=== PATIENT | female | born 1935 | race Caucasian/White ===

== ENCOUNTER 2017-03-17 11:45 | Inpatient (IN) | payer MEDICARE ==
[2017-03-15 12:28] LABS: BLOOD UREA NITROGEN 30 mg/dL (7-18)
[2017-03-15 12:32] LABS: ASPARTATE AMINO TRANSFERASE 24 U/L (15-37)
[2017-03-15 12:38] LABS: PATH.CAST-FLAG NOT PRESENT; SPERM-FLAG NOT PRESENT; SRC-FLAG NOT PRESENT; XTAL-FLAG NOT PRESENT; YLC-FLAG NOT PRESENT
[~2017-03-17] VITALS: Ht 157.5 cm; Wt 68.0 kg
[~2017-03-17 11:45] MED LIST: GLUC1TAB27 PO; IRON PO; KRIL500C PO; MULT-249 PO; SULF1TAB24 PO; VIT1CAPS42 PO
[2017-03-17] MEDS ORDERED: LACTATED RINGERS 1,000 ML IV SCH (12:31)
[2017-03-17 12:50] VITALS: BP 114/60
[2017-03-17] MEDS ORDERED: MIDAZOLAM 1 MG/ML, 2ML ONE (14:55)
[2017-03-17] MEDS ORDERED: FENTANYL PF 250 MCG/5ML ONE (14:55)
[2017-03-17] MEDS ORDERED: SUCCINYLCHOLINE 20 MG/ML, 10ML ONE (14:58)
[2017-03-17] MEDS ORDERED: PROPOFOL 10 MG/ML, 20ML ONE (14:58)
[2017-03-17] MEDS ORDERED: GLYCOPYRROLATE 0.2MG/1ML ONE (14:58)
[2017-03-17] MEDS ORDERED: ROCURONIUM 10 MG/ML ONE (14:58)
[2017-03-17] MEDS ORDERED: CEFAZOLIN 1,000 MG ONE (14:58)
[2017-03-17] MEDS ORDERED: NEOSTIGMINE 1 MG/ML, 10ML ONE (14:58)
[2017-03-17] MEDS ORDERED: OMNIPAQUE 350 MG/ML, 50 ML BOTTLE IV ONE (15:15)
[2017-03-17] MEDS ORDERED: OPIUM/BELLADONNA SUPP.RECT 16.2-60 MG ONE (15:41)
[2017-03-17] MEDS ORDERED: ONDANSETRON 2MG/ML, 2ML IVPush PRN (16:00)
[2017-03-17] MEDS ORDERED: LABETALOL 5MG/ML, 20ML IV PRN (16:00)
[2017-03-17] MEDS ORDERED: METOCLOPRAMIDE 5 MG/ML, 2ML IV PRN (16:00)
[2017-03-17] MEDS ORDERED: hydrALAzine 20 MG/ML, 1ML IV PRN (16:00)
[2017-03-17] MEDS ORDERED: OXYcodone 5 MG/5 ML ORAL.SOL UDC PO PRN (16:00)
[2017-03-17] MEDS ORDERED: ACETAMINOPHEN 325 MG TABLET PO PRN (16:00)
[2017-03-17] MEDS: FENTANYL PF 100 MCG/2ML IV PRN ×2 (16:10→16:32)
[2017-03-17] MEDS ORDERED: ACETAMINOPHEN 650 MG/20.3 ML UDC ONE (16:12)
[2017-03-17] MEDS ORDERED: HYDROmorphone 2 MG/ML, 1ML ONE (16:12)
[2017-03-17] MEDS ORDERED: ACETAMINOPHEN 325 MG TABLET ONE (16:12)
[2017-03-17] MEDS ORDERED: FENTANYL PF 100 MCG/2ML ONE (16:12)
[2017-03-17] MEDS ORDERED: OXYcodone 5 MG/5 ML ORAL.SOL UDC ONE (16:12)
[2017-03-17] MEDS: HYDROmorphone 1 MG/ML, 1ML IV PRN ×2 (16:19→16:29)
[2017-03-17] MEDS ORDERED: ONDANSETRON 2MG/ML, 2ML ONE (17:11)
[2017-03-17] MEDS ORDERED: morphine SULFATE 10 MG/ML, 1ML IV PRN (18:30)
[2017-03-17] MEDS ORDERED: HYDROcodone/APAP 5/325 TABLET PO PRN (18:30)
[2017-03-17] MEDS ORDERED: ONDANSETRON 2MG/ML, 2ML IV PRN (18:30)
[2017-03-17] MEDS: D5%-0.45NACL+KCL 20MEQ 1,000 ML IV SCH (18:45)
[2017-03-17 20:03] VITALS: BP 106/46
[2017-03-17] MEDS ORDERED: PROMETHAZINE 25 MG/ML, 1ML IM PRN (21:00)
[2017-03-17] MEDS: SULFAMETH./TRIMETHOPRIM DS 800MG/160MG TABLET PO SCH (23:02)
[2017-03-17] MEDS: CEFAZOLIN PMX 1GM/50ML 50 ML IV SCH (23:13)
[2017-03-18 00:44] VITALS: BP 93/43
[2017-03-18 05:04] VITALS: BP 93/46
[2017-03-18] MEDS: D5%-0.45NACL+KCL 20MEQ 1,000 ML IV SCH (05:47)
[2017-03-18 07:05] VITALS: BP 101/47
[2017-03-18] MEDS: SULFAMETH./TRIMETHOPRIM DS 800MG/160MG TABLET PO SCH (08:25)
[2017-03-18] MEDS: CEFAZOLIN PMX 1GM/50ML 50 ML IV SCH (08:25)
[2017-03-18 12:50] VITALS: BP 133/54
[2017-03-18] MEDS ORDERED: PHEN-418 PO (14:22)
[2017-03-18] MEDS ORDERED: NITR100C56 PO (14:23)
[2017-03-18] MEDS ORDERED: HYDR-3240 PO (14:24)
== END 2017-03-18 14:05 | disposition home or self-care (01) | DRG 657 ==
LOC: OUT 11:45 → 4NOR 17:52 → OUT 20:49 → 4NOR 20:49 → DCLOUNGE 03-18 13:25
PROVIDERS: ADMIT Urology; ATTEND Urology
PROC: BT1D1ZZ Fluoroscopy of Right Kidney, Ureter and Bladder using Low Osmolar Contrast (ICD-10-PCS; 2017-03-17)
PROC: 0T738DZ Dilation of Right Kidney Pelvis with Intraluminal Device, Via Natural or Artificial Opening Endoscopic (ICD-10-PCS; 2017-03-17)
PROC: 0T768DZ Dilation of Right Ureter with Intraluminal Device, Via Natural or Artificial Opening Endoscopic (ICD-10-PCS; principal; 2017-03-17 14:00)
PROC: 0TBB8ZZ Excision of Bladder, Via Natural or Artificial Opening Endoscopic (ICD-10-PCS; 2017-03-17 14:00)
DX: C67.9 Malignant neoplasm of bladder, unspecified (principal); N13.30 Unspecified hydronephrosis; N13.8 Other obstructive and reflux uropathy
CPT/HCPCS: 36415; 74420; 80053; 81001; 87086; 88305; 93005; J0690; J1170; J2250; J2405; J2550; J2704; J2710; J3010; J3490; Q9967; C1769; C2617; J0330; J3480; J7120

== ENCOUNTER → 2017-03-25 | Outpatient (CLI) | payer MEDICARE ==
[~2017-03-25] MED LIST changes: +HYDR-3240 PO; +NITR100C56 PO; +PHEN-418 PO
== END | disposition home or self-care (01) ==
LOC: PETCFH 11:15
PROVIDERS: ATTEND Urology
DX: C67.2 Malignant neoplasm of lateral wall of bladder (principal)
CPT/HCPCS: 78306; A9503

== ENCOUNTER → 2017-08-17 | Outpatient (CLI) | payer MEDICARE ==
[~2017-08-17] MED LIST changes: +VITAMIN B17 PO
[2017-08-17 11:53] LABS: PATH.CAST-FLAG NOT PRESENT; SPERM-FLAG NOT PRESENT; SRC-FLAG NOT PRESENT; XTAL-FLAG NOT PRESENT; YLC-FLAG NOT PRESENT
[2017-08-17 12:02] LABS: ASPARTATE AMINO TRANSFERASE 13 U/L (15-37); BLOOD UREA NITROGEN 29 mg/dL (7-18)
== END | disposition home or self-care (01) ==
LOC: STAR 10:47
PROVIDERS: ATTEND Urology
DX: Z01.818 Encounter for other preprocedural examination (principal); R94.31 Abnormal electrocardiogram [ECG] [EKG]; R82.99 Other abnormal findings in urine
CPT/HCPCS: 36415; 80053; 81001; 87086; 93005

== ENCOUNTER 2017-08-26 10:04 | Observation (INO) | payer MEDICARE ==
[~2017-08-26] VITALS: Ht 157.5 cm; Wt 67.0 kg
[2017-08-26 10:24] VITALS: BP 123/65
[2017-08-26] MEDS ORDERED: LACTATED RINGERS 1,000 ML IV SCH (10:28)
[2017-08-26] MEDS ORDERED: FENTANYL PF 100 MCG/2ML ONE ×4 (11:38→15:13)
[2017-08-26] MEDS ORDERED: PROPOFOL 50 ML ONE (11:43)
[2017-08-26] MEDS ORDERED: ONDANSETRON 2MG/ML, 2ML ONE ×2 (12:10→15:29)
[2017-08-26] MEDS ORDERED: CEFAZOLIN 1,000 MG ONE (12:10)
[2017-08-26] MEDS ORDERED: PROPOFOL 10 MG/ML, 20ML ONE (12:10)
[2017-08-26] MEDS ORDERED: GLYCOPYRROLATE 0.2MG/1ML, 5ML ONE (12:10)
[2017-08-26] MEDS ORDERED: ROCURONIUM 10 MG/ML ONE (12:10)
[2017-08-26] MEDS ORDERED: DEXAMETHASONE 4 MG/ML, 1ML ONE (12:10)
[2017-08-26] MEDS ORDERED: NEOSTIGMINE 1 MG/ML, 10ML ONE (12:10)
[2017-08-26] MEDS ORDERED: SUCCINYLCHOLINE 20 MG/ML, 10ML ONE (12:10)
[2017-08-26] MEDS ORDERED: OXYcodone 5 MG/5 ML ORAL.SOL UDC ONE (12:59)
[2017-08-26] MEDS ORDERED: ACETAMINOPHEN 650 MG/20.3 ML UDC ONE (12:59)
[2017-08-26] MEDS: FENTANYL PF 100 MCG/2ML IV PRN ×3 (13:00→13:36)
[2017-08-26] MEDS ORDERED: OXYcodone 5 MG/5 ML ORAL.SOL UDC PO PRN (13:30)
[2017-08-26] MEDS ORDERED: ACETAMINOPHEN 325 MG TABLET PO PRN (13:30)
[2017-08-26] MEDS ORDERED: HYDROmorphone 1 MG/ML, 1ML IV PRN (13:30)
[2017-08-26] MEDS ORDERED: LIDOCAINE 1%, 20ML ONE (14:51)
[2017-08-26] MEDS ORDERED: HYDROcodone/APAP 5/325 TABLET PO PRN ×2 (15:00)
[2017-08-26] MEDS ORDERED: morphine SULFATE 10 MG/ML, 1ML IV PRN (15:00)
[2017-08-26] MEDS ORDERED: OPIUM/BELLADONNA SUPP.RECT 16.2-30 MG PR PRN (15:00)
[2017-08-26] MEDS ORDERED: ONDANSETRON 2MG/ML, 2ML IV PRN (15:00)
[2017-08-26] MEDS ORDERED: NALOXONE 1 MG/ML, 2ML ONE (15:13)
[2017-08-26] MEDS ORDERED: FLUMAZENIL 0.1 MG/1 ML, 5ML ONE (15:13)
[2017-08-26] MEDS ORDERED: MIDAZOLAM 1 MG/ML, 5ML ONE (15:13)
[2017-08-26] MEDS: D5%-0.45NACL+KCL 20MEQ 1,000 ML IV SCH (17:18)
[2017-08-26 19:35] VITALS: BP 115/60
[2017-08-26] MEDS: CEFAZOLIN PMX 1GM/50ML 50 ML IV SCH (20:33)
[2017-08-27 01:43] VITALS: BP 105/64
[2017-08-27] MEDS: CEFAZOLIN PMX 1GM/50ML 50 ML IV SCH (04:23)
[2017-08-27 05:18] LABS: HEMATOCRIT 26.9 % (34.6-47.8); HEMOGLOBIN 9.2 g/dL (11.7-16.4)
[2017-08-27 05:27] LABS: BLOOD UREA NITROGEN 25 mg/dL (7-18)
[2017-08-27] MEDS: D5%-0.45NACL+KCL 20MEQ 1,000 ML IV SCH (06:23)
[2017-08-27 06:40] VITALS: BP 92/51
[2017-08-27] MEDS ORDERED: HYDR-3237 PO (09:57)
[2017-08-27] MEDS ORDERED: PHEN-418 PO (09:57)
[2017-08-27 10:55] VITALS: BP 97/57
[2017-08-27 18:25] VITALS: BP 95/55
== END 2017-08-27 11:05 | disposition home or self-care (01) ==
LOC: OUT 10:04 → 4NOR 14:21 → OUT 22:34
PROVIDERS: ADMIT Urology; ATTEND Urology
DX: C67.9 Malignant neoplasm of bladder, unspecified (principal); N13.1 Hydronephrosis with ureteral stricture, not elsewhere classified; K21.9 Gastro-esophageal reflux disease without esophagitis
CPT/HCPCS: 36415; 50693; 52240; 80048; 85014; 85018; 88307; 96365; 96375; 99156; 99157; C1769; C1894; C2625; G0378; J0330; J0690; J1100; J2250; J2405; J2704; J2710; J3010; J3480; J3490; J7120; J2310

== ENCOUNTER → 2017-12-20 | Outpatient (CLI) | payer MEDICARE ==
[~2017-12-20] MED LIST changes: +CALC-534 PO; +CETI10CA PO; +HYDR-3237 PO; +areds PO
[2017-12-20 12:33] LABS: ALBUMIN 3.5 g/dL (3.4-5.0); ANION GAP 7 mmol/L (5-15); CALCIUM 8.7 mg/dL (8.5-10.1); CHLORIDE 111 mmol/L (98-107)
[2017-12-20 12:36] LABS: ALANINE AMINOTRANSFERASE 51 U/L (12-78); ALKALINE PHOSPHATASE 83 U/L (45-117); BILIRUBIN,TOTAL 0.7 mg/dL (0.2-1.0); CREATININE 1.63 mg/dL (0.55-1.02); TOTAL PROTEIN 7.3 g/dL (6.4-8.2)
[2017-12-20 13:15] LABS: MICROSCOPIC INDICATED
== END | disposition home or self-care (01) ==
LOC: STAR 11:01
PROVIDERS: ATTEND Urology
DX: Z01.818 Encounter for other preprocedural examination (principal); N13.30 Unspecified hydronephrosis; C67.9 Malignant neoplasm of bladder, unspecified
CPT/HCPCS: 36415; 80053; 81001; 87086; 93005

== ENCOUNTER 2018-01-04 05:49 | Day surgery (SDC) | payer MEDICARE ==
[~2018-01-04] VITALS: Ht 160 cm; Wt 63.0 kg
[2018-01-04] MEDS ORDERED: LACTATED RINGERS 1,000 ML IV SCH (06:16)
[2018-01-04 06:17] VITALS: BP 145/80
[2018-01-04] MEDS ORDERED: FENTANYL PF 100 MCG/2ML ONE (06:51)
[2018-01-04] MEDS ORDERED: LABETALOL 5MG/ML, 20ML IV PRN (07:00)
[2018-01-04] MEDS ORDERED: ACETAMINOPHEN 325 MG TABLET PO PRN (07:00)
[2018-01-04] MEDS ORDERED: morphine SULFATE 10 MG/ML, 1ML IV PRN (07:00)
[2018-01-04] MEDS ORDERED: OXYcodone 5 MG/5 ML ORAL.SOL UDC PO PRN (07:00)
[2018-01-04] MEDS ORDERED: MEPERIDINE/PF 25MG/0.5ML IVPush PRN (07:00)
[2018-01-04] MEDS ORDERED: ONDANSETRON 2MG/ML, 2ML IVPush PRN (07:00)
[2018-01-04] MEDS ORDERED: FENTANYL PF 100 MCG/2ML IV PRN (07:00)
[2018-01-04] MEDS ORDERED: PROPOFOL 10 MG/ML, 20ML ONE (07:03)
[2018-01-04] MEDS ORDERED: ONDANSETRON 2MG/ML, 2ML ONE (07:03)
[2018-01-04] MEDS ORDERED: DEXAMETHASONE 4 MG/ML, 1ML ONE (07:03)
[2018-01-04] MEDS ORDERED: PROPOFOL 10 MG/ML, 50ML ONE (07:03)
== END 2018-01-04 09:20 ==
LOC: OUT 05:49
PROVIDERS: ATTEND Urology
DX: N13.30 Unspecified hydronephrosis (principal); C67.9 Malignant neoplasm of bladder, unspecified; N13.5 Crossing vessel and stricture of ureter without hydronephrosis; Z88.8 Allergy status to other drugs, medicaments and biological substances
CPT/HCPCS: 52332; 74018; 76000; C2617; J1100; J2405; J2704; J3010; J7120

== ENCOUNTER → 2018-05-23 | Outpatient (CLI) | payer MEDICARE | END | disposition home or self-care (01) | LOC: RAD 15:45 | PROVIDERS: ATTEND Urology | DX: I82.403 Acute embolism and thrombosis of unspecified deep veins of lower extremity, bilateral (principal); R60.0 Localized edema | CPT/HCPCS: 93970 ==

== ENCOUNTER → 2018-06-13 | Outpatient (CLI) | payer MEDICARE ==
[2018-06-13 12:06] LABS: CREATININE 1.56 mg/dL (0.55-1.02)
== END | disposition home or self-care (01) ==
LOC: LAB 11:40
PROVIDERS: ATTEND Urology
DX: C67.9 Malignant neoplasm of bladder, unspecified (principal)
CPT/HCPCS: 36415; 82565; 84520

== ENCOUNTER → 2018-06-19 | Outpatient (CLI) | payer MEDICARE ==
[~2018-06-19] MED LIST changes: +GADOBUTROL 10 MMOL/10 ML VIAL ONE
== END | disposition home or self-care (01) ==
LOC: RAD 12:10
PROVIDERS: ATTEND Urology
DX: N26.1 Atrophy of kidney (terminal) (principal); N13.30 Unspecified hydronephrosis; N13.4 Hydroureter; C67.9 Malignant neoplasm of bladder, unspecified; R19.00 Intra-abdominal and pelvic swelling, mass and lump, unspecified site
CPT/HCPCS: 72197; 74183; A9585

== ENCOUNTER → 2018-08-03 | Outpatient (CLI) | payer MEDICARE ==
[~2018-08-03] MED LIST changes: -GADOBUTROL 10 MMOL/10 ML VIAL ONE; +RIVA15TA PO; +TRAM50TA2 PO
== END | disposition home or self-care (01) ==
LOC: LAB 17:28
PROVIDERS: ATTEND Internal Medicine
DX: Z02.9 Encounter for administrative examinations, unspecified (principal)

== ENCOUNTER 2018-08-27 12:44 | Emergency (ER) | payer MEDICARE ==
[~2018-08-27] VITALS: Ht 160 cm; Wt 58.3 kg
[2018-08-27] MEDS ORDERED: HYDR-3240 PO (12:56)
[2018-08-27 13:30] LABS: BASOPHILS # (AUTO) 0.01 x10^3/uL (0-0.1); BASOPHILS % (AUTO) 0 % (0-1); EOSINOPHILS # (AUTO) 0.02 x10^3/uL (0-0.4); EOSINOPHILS % (AUTO) 0 % (1-7); LYMPHOCYTES # (AUTO) 0.36 x10^3/uL (1-3.4); LYMPHOCYTES % (AUTO) 4 % (22-44); MD NO; MEAN CORPUSCULAR HEMOGLOBIN 29.1 pg (27.0-34.8); MEAN CORPUSCULAR HGB CONC 33.8 g/dL (32.4-35.8); MEAN CORPUSCULAR VOLUME 86.1 fL (80-100); MEAN PLATELET VOLUME 6.2 fL (7.4-10.4); MONOCYTES # (AUTO) 0.71 x10^3/uL (0.2-0.8); MONOCYTES % (AUTO) 8 % (2-9); NEUTROPHILS % (AUTO) 88 % (42-75); PLATELET COUNT 254 x10^3/uL (130-400); RED BLOOD COUNT 3.25 x10^6/uL (3.82-5.3); RED CELL DISTRIBUTION WIDTH 15.9 % (9.6-15.2)
[2018-08-27] MEDS ORDERED: SODIUM CHLORIDE 0.9% 1,000ML IVBOLUS ONE (13:30)
[2018-08-27] MEDS ORDERED: SODIUM CHLORIDE FLUSH 10ML SYR IVF ONE (13:30)
[2018-08-27] MEDS ORDERED: ONDANSETRON 2MG/ML, 2ML IVPush ONE (13:30)
[2018-08-27 13:35] LABS: ALANINE AMINOTRANSFERASE 27 U/L (12-78); ANION GAP 12 mmol/L (5-15); CHLORIDE 105 mmol/L (98-107); CREATININE 1.53 mg/dL (0.55-1.02)
[2018-08-27 13:37] LABS: ALKALINE PHOSPHATASE 67 U/L (45-117); BILIRUBIN,TOTAL 0.7 mg/dL (0.2-1.0); TOTAL PROTEIN 7.8 g/dL (6.4-8.2)
[2018-08-27] MEDS ORDERED: ONDANSETRON 2MG/ML, 2ML ONE (13:57)
[2018-08-27 14:29] LABS: MICROSCOPIC INDICATED
[2018-08-27 14:34] LABS: CULTURE INDICATED? YES
[2018-08-27 15:53] VITALS: BP 115/57
== END 2018-08-27 16:00 | disposition home or self-care (01) ==
LOC: ED 15:54
DX: N30.00 Acute cystitis without hematuria (principal); R31.0 Gross hematuria; R11.0 Nausea; D63.8 Anemia in other chronic diseases classified elsewhere; C80.1 Malignant (primary) neoplasm, unspecified
CPT/HCPCS: 36415; 71045; 80053; 81001; 83605; 85025; 86850; 86900; 86923; 87086; 93005; 96374; 99285; J2405; J7030